=== PATIENT | female | born 1990 | race African-American/Black ===

== ENCOUNTER 2024-05-27 19:58 | Emergency (ER) | payer BC, MEDICAID, SELFPAY ==
[2024-05-27 20:14] VITALS: BP 130/78; PULSE 88; RESP 14; TEMP 36.6; O2SAT 99
[2024-05-27 21:32] LABS: BEDSIDEPREGUCG Positive (Negative)
[2024-05-27 21:38] LABS: Basophils Absolute Auto 0.1 K/mm3 (0.0-0.1); Basophils Percent Auto 0.5 % (0.2-1.2); Eosinophils Absolute Auto 0.2 K/mm3 (0-0.3); Eosinophils Percent Auto 1.4 % (0-4.4); Hematocrit 35.8 % (37.0-47.0); Hemoglobin 11.2 g/dL (12.0-15.0); Immature Granulocyte Absolute 0.06 K/mm3 (0.00-0.031); Immature Granulocyte Percent A 0.4 % (0-0.5); Lymphocytes Absolute Auto 4.17 K/mm3 (0.9-3.2); Lymphocytes Percent Auto 30.2 % (18.3-44.2); Mean Corpuscular HGB Conc 31.3 g/dl (32-36); Mean Corpuscular Hemoglobin 28.6 pg (26-34); Mean Corpuscular Volume 91.3 fl (80-100); Mean Platelet Volume 9.8 fl (7.4-10.4); Monocytes Absolute Auto 1.2 K/mm3 (0.1-0.6); Neutrophils Absolute Auto 8.1 K/mm3 (1.3-6.7); Neutrophils Percent Auto 58.5 % (45.5-73.1); Platelet Count Result 395 k/mm3 (150-375); Red Blood Count 3.92 M/mm3 (4.2-5.4); Red Cell Distribution Width 14.4 % (11.5-14.5); White Blood Count 13.8 K/mm3 (4.5-10.0)
--- NOTE | 2024-05-27 21:44 | ED_ITS ---
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 Came straight to the ER. Symptoms are resolving currently <Kate Laboy MD - Last Filed: 05/27/24 21:51> Related Data Allergies/Adverse reactions: Allergies Allergy/AdvReac Type Severity Reaction Status Date / Time No Known Allergies Allergy Verified 05/27/24 20:00 <Kate Laboy MD - Last Filed: 05/27/24 21:51> Review of Systems 2 Review of Systems: All systems reviewed & are unremarkable except as noted in HPI and below <Kate Laboy MD - Last Filed: 05/27/24 21:51> Exam 2 Narrative: EXAMINATION OF ORGAN SYSTEMS/BODY AREAS: Constitutional: Vital signs per nursing GENERAL:[No acute distress, non-toxic appearing.] HEAD: Normal with no signs of head trauma. EYES: EOMI, conjunctiva normal ENT: Hearing grossly intact LUNGS: Nonlabored breathing. HEART: [Regular rate and rhythm] ABD: [Soft], gravid, [nontender to palpation] EXT: Normal range of motion SKIN: [No rashes or lesions.] NEURO: [Alert and oriented x 3. No gross focal sensory or strength deficits.] PSYCH: Normal affect <Kate Laboy MD - Last Filed: 05/27/24 21:51> Course Vital Signs Vital signs: Vital Signs Temperature 97.9 F 05/27/24 20:14 Pulse Rate 88 05/27/24 20:14 Respiratory Rate 14 05/27/24 20:14 Blood Pressure 130/78 05/27/24 20:14 Pulse Oximetry 99 05/27/24 20:14 Temperature 97.9 F 05/27/24 20:14 Pulse Rate 88 05/27/24 20:14 Respiratory Rate 14 05/27/24 20:14 Blood Pressure 130/78 05/27/24 20:14 Pulse Oximetry 99 05/27/24 20:14 <Kate Laboy MD - Last Filed: 05/27/24 21:51> Vital Signs Temperature 97.9 F 05/27/24 20:14 Pulse Rate 88 05/27/24 20:14 Respiratory Rate 14 05/27/24 20:14 Blood Pressure 130/78 05/27/24 20:14 Pulse Oximetry 99 05/27/24 20:14 Temperature 97.9 F 05/27/24 20:14 Pulse Rate 88 05/27/24 20:14 Respiratory Rate 14 05/27/24 20:14 Blood Pressure 130/78 05/27/24 20:14 Pulse Oximetry 99 05/27/24 20:14 <Tere Pérez MD - Last Filed: 05/27/24 22:48> MDM - OB/Uterine Contractions MDM Narrative Medical decision making narrative: Patient presenting at 12 weeks with spotting and cramping. She is well-appearing here, abdomen soft nontender and gravid. I did perform bedside ultrasound, I did see twin gestation, both intrauterine, with heart rate in the 150s. I will obtain labs including beta quant, blood type, CBC, I have discussed with patient this may be a threatened miscarriage, she will be signed out to oncoming ER physician pending labs but I anticipate going home with follow-up to OBGYN. < Kate Laboy MD - Last Filed: 05/27/24 21:51> Patient presenting at 12 weeks with spotting and cramping. She is well-appearing here, abdomen soft nontender and gravid. I did perform bedside ultrasound, I did see twin gestation, both intrauterine, with heart rate in the 150s. I will obtain labs including beta quant, blood type, CBC, I have discussed with patient this may be a threatened miscarriage, she will be signed out to oncoming ER physician pending labs but I anticipate going home with follow-up to OBGYN. Beto: Patient was signed out to me pending remainder of the workup. The patient was evaluated by myself in the emergency department. History is obtained from patient who is an independent historian and physical exam was performed. External medical records were reviewed at this time. IV was established and pertinent tests were ordered. Blood work was obtained revealing no acute process[place] [address], potassium level of 3.1, and blood type A positive. At this time patient was administered 40 meq of oral potassium. Differential diagnosis considerations include threatened miscarriage, electrolyte derangements. Comorbidities impacting this visit include none. I have evaluated and discussed social determinants of health with the patient that could potentially impact subsequent diagnosis and treatment plans. On repeat assessment of the patient, reevaluation revealed that the patient is doing well and is in no acute distress. Patient symptoms have improved since she arrived to our emergency department. Repeat vital signs were all reviewed and noted to be stable. Differential diagnosis and treatment plan were discussed with the patient at bedside. Patient agrees with discussion and after shared medical decision making agrees with discharge. All questions were answered to the patient's satisfaction. Patient will follow up with her OBGYN in 2 days. Patient was provided with strict return precautions and instructed to return to the emergency department if any new or worsening symptoms develop. The patient was discharged in stable condition. <Tere Pérez MD - Last Filed: 05/27/24 22:48> Lab Data Result diagrams: 05/27/24 20:18 05/27/24 20:18 <Kate Laboy MD - Last Filed: 05/27/24 21:51> Labs: Lab Results 05/27/24 05/27/24 Range/Units 20:18 21:30 WBC 13.8 H (4.5-10.0) K/mm3 RBC 3.92 L (4.2-5.4) M/mm3 Hgb 11.2 L (12.0-15.0) g/dL Hct 35.8 L (37.0-47.0) % MCV 91.3 (80-100) fl MCH 28.6 (26-34) pg MCHC 31.3 L (32-36) g/dl RDW 14.4 (11.5-14.5) % Plt Count 395 H (150-375) k/mm3 MPV 9.8 (7.4-10.4) fl Immature Gran % (Auto) 0.4 (0-0.5) % Neut % (Auto) 58.5 (45.5-73.1) % Lymph % (Auto) 30.2 (18.3-44.2) % Glasscock % (Auto) 9.0 H (2.6-8.5) % Eos % (Auto) 1.4 (0-4.4) % Baso % (Auto) 0.5 (0.2-1.2) % Lymph # (Auto) 4.17 H (0.9-3.2) K/mm3 Glasscock # (Auto) 1.2 H (0.1-0.6) K/mm3 Eos # (Auto) 0.2 (0-0.3) K/mm3 Baso # (Auto) 0.1 (0.0-0.1) K/mm3 Abs Immat Gran (auto) 0.06 H (0.00-0.031) K/mm3 Absolute Neuts (auto) 8.1 H (1.3-6.7) K/mm3 Absolute Nucleated RBC 0.000 (0.0-0.012) K/mm3 Nucleated RBC % 0.0 (0.0-0.2) % Sodium 134 L (137-145) mmol/L Potassium 3.1 L (3.4-5.0) mmol/L Chloride 104 (98-107) mmol/L Carbon Dioxide 23 (22-30) mmol/L Anion Gap 7 (4-12) mmol/L BUN 4 L (7-17) mg/dL Creatinine 0.51 L (0.7-1.0) mg/dL Estim Creat Clear Calc 170 ml/min Estimated GFR > 60 (59 - ) Glucose 86 (65-110) mg/dL Calcium 8.5 (8.4-10.2) mg/dL Total Bilirubin 1.1 (0.2-1.3) mg/dL AST 24 (14-36) U/L ALT 15 (6-35) U/L Alkaline Phosphatase 78 (38-126) U/L Total Protein 7.0 (6.3-8.2) g/dL Albumin 3.9 (3.5-5.1) g/dL Beta HCG, Quant > 92232.00 mIU/ML POC Urine HCG, Qual Positive (Negative) Blood Type A Positive Antibody Screen Negative Screen TNP Baby's Blood Type Not Reportable Baby's NELSY Not Reportable Doses of RhIg Required 0 <Kate Laboy MD - Last Filed: 05/27/24 21:51> Lab Results 05/27/24 05/27/24 Range/Units 20:18 21:30 WBC 13.8 H (4.5-10.0) K/mm3 RBC 3.92 L (4.2-5.4) M/mm3 Hgb 11.2 L (12.0-15.0) g/dL Hct 35.8 L (37.0-47.0) % MCV 91.3 (80-100) fl MCH 28.6 (26-34) pg MCHC 31.3 L (32-36) g/dl RDW 14.4 (11.5-14.5) % Plt Count 395 H (150-375) k/mm3 MPV 9.8 (7.4-10.4) fl Immature Gran % (Auto) 0.4 (0-0.5) % Neut % (Auto) 58.5 (45.5-73.1) % Lymph % (Auto) 30.2 (18.3-44.2) % Glasscock % (Auto) 9.0 H (2.6-8.5) % Eos % (Auto) 1.4 (0-4.4) % Baso % (Auto) 0.5 (0.2-1.2) % Lymph # (Auto) 4.17 H (0.9-3.2) K/mm3 Glasscock # (Auto) 1.2 H (0.1-0.6) K/mm3 Eos # (Auto) 0.2 (0-0.3) K/mm3 Baso # (Auto) 0.1 (0.0-0.1) K/mm3 Abs Immat Gran (auto) 0.06 H (0.00-0.031) K/mm3 Absolute Neuts (auto) 8.1 H (1.3-6.7) K/mm3 Absolute Nucleated RBC 0.000 (0.0-0.012) K/mm3 Nucleated RBC % 0.0 (0.0-0.2) % Sodium 134 L (137-145) mmol/L Potassium 3.1 L (3.4-5.0) mmol/L Chloride 104 (98-107) mmol/L Carbon Dioxide 23 (22-30) mmol/L Anion Gap 7 (4-12) mmol/L BUN 4 L (7-17) mg/dL Creatinine 0.51 L (0.7-1.0) mg/dL Estim Creat Clear Calc 170 ml/min Estimated GFR > 60 (59 - ) Glucose 86 (65-110) mg/dL Calcium 8.5 (8.4-10.2) mg/dL Total Bilirubin 1.1 (0.2-1.3) mg/dL AST 24 (14-36) U/L ALT 15 (6-35) U/L Alkaline Phosphatase 78 (38-126) U/L Total Protein 7.0 (6.3-8.2) g/dL Albumin 3.9 (3.5-5.1) g/dL Beta HCG, Quant > 47724.00 mIU/ML POC Urine HCG, Qual Positive (Negative) Blood Type A Positive Antibody Screen Negative Screen TNP Baby's Blood Type Not Reportable Baby's NELSY Not Reportable Doses of RhIg Required 0 <Tere Pérez MD - Last Filed: 05/27/24 22:48> Discharge Plan Discharge Clinical Impression: Threatened miscarriage, Hypokalemia <Kate Laboy MD - Last Filed: 05/27/24 21:51> Patient Disposition: Home <Kate Laboy MD - Last Filed: 05/27/24 21:51> Condition: Stable <Kate Laboy MD - Last Filed: 05/27/24 21:51> Instructions: Threatened Miscarriage (ED) <Kate Laboy MD - Last Filed: 05/27/24 21:51> Additional Instructions: Please follow-up with your OBGYN in 2 days. If you start experiencing heavy bleeding, such as soaking 1 pad an hour for 2 hours straight, or severe pain or anything else concerning, please come back to the hospital. <Kate Laboy MD - Last Filed: 05/27/24 21:51> Patient Language: Lebanese <Kate Laboy MD - Last Filed: 05/27/24 21:51> Follow-up/Referrals: PHYSICIAN NOT ON STAFF,NONSTAFF [Non-Staff] - 2 Days <Kate Laboy MD - Last Filed: 05/27/24 21:51> Time of Disposition: 22:45 <Kate Laboy MD - Last Filed: 05/27/24 21:51> 22:45 <Tere Pérez MD - Last Filed: 05/27/24 22:48>
[2024-05-27 21:59] LABS: Alanine Aminotransferase 15 U/L (6-35); Albumin Level 3.9 g/dL (3.5-5.1); Alkaline Phosphatase 78 U/L (38-126); Anion Gap 7 mmol/L (4-12); Aspartate Amino Transferase 24 U/L (14-36); Bilirubin,Total 1.1 mg/dL (0.2-1.3); Blood Urea Nitrogen 4 mg/dL (7-17); Calcium 8.5 mg/dL (8.4-10.2); Carbon Dioxide 23 mmol/L (22-30); Chloride 104 mmol/L (98-107); Estimated CRCL calculation 170 ml/min; Estimated Glomerular Filt Rate > 60; Glucose 86 mg/dL (65-110); Potassium 3.1 mmol/L (3.4-5.0); Sodium 134 mmol/L (137-145)
--- OUTSIDE RECORDS SUMMARY | 2024-05-27 22:16 | XMS_ITS | Clinical Summary ---
Author Organization [facility] Address [address] [place] [address] Care Team Providers Care Ski Maker Wood Name Role Phone Unavailable Primary Care Provider Unavailabl e Allergies Active Allergy Reactions Criticality Noted Date Comments Penicillins Unknown 08/07/2021 Medications metroNIDAZOLE (METROCREAM) 0.75 % Cream Apply to affected area 2 times daily. 2 Active HYDROcodone-aceta minophen (HYCET) 7.5-325 mg/15 mL SolutionIndicatio ns:Obesity (BMI 35.0-39.9 without comorbidity) Take 15 mL by mouth every 6 hours as needed for Pain. Max Daily Amount: 60 mL 300 mL 08/30/2021 12:39 PM CDT 2 Active omeprazole (PriLOSEC) 40 mg Capsule, Delayed Release(E.C.) Take 1 Capsule (40 mg) by mouth daily. 30 Capsule 2 08/30/2021 12:39 PM CDT 2 Active ondansetron (ZOFRAN ODT) 4 mg Tablet, Rapid Dissolve Dissolve 1 Tablet (4 mg)on top of tongue, then swallow with saliva every 8 hours as needed for Nausea/Vomiti ng 20 Tablet 08/30/2021 12:39 PM CDT 2 Active ketorolac tromethamine (TORADOL) 10 mg tablet Take 1 Tablet (10 mg) by mouth every 6 hours as needed for Pain. 15 Tablet 1 2 Active ergocalciferol (VITAMIN D2) 50,000 unit capsuleIndication s:Vitamin D deficiency TAKE 1 CAPSULE (50,000 UNITS) BY MOUTH EVERY 7 DAYS 12 Capsule 1 2 Active ferrous sulfate 325 mg (65 mg iron) Tablet, Delayed Release (E.C.)Indications :Iron deficiency anemia, unspecified iron deficiency anemia type TAKE 1 TABLET BY MOUTH EVERY DAY 90 Tablet 1 2 Active Active Problems Problem Noted Date Diagnosed Date Iron deficiency anemia randal thomas to inadequate dietary iron intake 09/18/2021 H/O bariatric surgery 09/18/2021 Obesity (BMI 35.0-39.9 without comorbidity) 07/13 Social History Tobacco Use Types Packs/Day Years Used Date Smoking Tobacco: Never Smokeless Tobacco: Never Tobacco Cessation:Counseling Given: Not Answered Alcohol Use Standard Drinks/Week Comments Never 0 (1 standard drink = 0.6 oz pur e alcohol) Comments No Sex and Gender Information Value Date Recorded Sex Assigned at Not on file Legal Sex Female 1:38 PM CDT Gender Identity Not on file Sexual Orientation Not on file Last Filed Vital Signs Vital Sign Reading Time Taken Comments Blood Pressure 137/79 12/08/2021 10:52 AM CDT Pulse 72 12/08/2021 10:52 AM CDT Temperature 37 C (98.6 F) 12/08/2021 8:46 AM CDT Respiratory Rate 16 12/08/2021 8:46 AM CDT Oxygen Saturation 98% 11/20/2021 3:06 PM CDT Inhaled Oxygen Concentration - - Weight 124.7 kg (275 lb) 11/20/2021 3:06 PM CDT Height 172.7 cm (5' 8 ) 11/20/2021 3:06 PM CDT Body Mass Index 41.81 11/20/2021 3:06 PM CDT Plan of Treatment Health Maintenance Due Date Last Done Comments DTAP/TDAP/TD VACCINES (1 - Tdap) 2009 HEPATITIS B VACCINES (1 of 3 - 19+ 3-dose series) 2009 HPV/Cotest (21-29) 12/05/2011 CERVICAL CANCER SCREENING 2020 HPV/Cotest (30-65) 2020 PAP SMEAR 2020 INFLUENZA VACCINE (#1) 2023 HPV VACCINES Aged Out No longer eligi ble based on patient's age to complete this topic Medical Devices Implanted Type Area Keyseating Machine Set Up Operator Device Identifier Shelf Expiration Date Model / Serial / Lot Algrf Amniofix 2x12cm Amnio Membrane Implanted:Qty: 1 on 08/30/2021 by [facility] N/A: Abdomen [employer] 04/11/2026 [id number] / [id number] / Description:1X ADD CHECKED BY RN 08/31/21 PER TISSUE TRACKING FORM Requisition: [id number] Insurance [facility] BLUE ACCESS CHOICE RX [facility] [employer]
--- OUTSIDE RECORDS SUMMARY | 2024-05-27 22:16 | XMS_ITS | Encounter Summary ---
Author Organization [facility] Address [address] [place] [address] Care Team Providers Care Assistant Women'S Basketball Coach Name Role Phone Unavailable Primary Care Provider Unavailabl e Reason for Visit * Reason Onset Date Comments Medication Refill 09/25/2021 Encounter Details Date Type Department Care Team (Late st Contact Info) Description 09/25/2021 Refill [facility] [address] [address] Rubens Pabon MD [address] [place] [id number] Vitamin D deficiency Social History Tobacco Use Types Packs/Day Years Used Date Smoking Tobacco: Never Smokeless Tobacco: Never Alcohol Use Standard Drinks/Week Comments Never 0 (1 standard drink = 0.6 oz pur e alcohol) Comments No Sex and Gender Information Value Date Recorded Sex Assigned at Not on file Legal Sex Female 1:38 PM CDT Gender Identity Not on file Sexual Orientation Not on file COVID-19 Exposure Response Date Recorded In the last 10 days, have yo u been in contact with someone who was confirmed or suspected to have Coronavirus/COVID-19? No / Unsure 09/27/2021 7:26 AM CDT documented as of this encounter Plan of Treatment Not on file documented as of this encounter Visit Diagnoses Diagnosis Vitamin D deficiency Unspecified vitamin D deficiency documented in this encounter
--- OUTSIDE RECORDS SUMMARY | 2024-05-27 22:16 | XMS_ITS | Clinical Summary ---
Author Organization [facility] Address [address] [place] [address] Care Team Providers Care Sterile Instrument Technician Name Role Phone Azalia Cardona MD Primary Care Provid er Allergies No known active allergies Medications dicyclomine (BENTYL) 20 mg tablet Take 1 tablet by mouth as needed 2 Active M- Plus 27 mg iron- 1 mg tablet Take 1 tablet by mouth daily 2 Active docusate sodium (COLACE) 100 mg capsuleIndicati ons:constipatio n Take 100 mg by mouth daily Active ferrous sulfate 325 mg (65 mg of elemental iron) tabletIndicatio ns:Iron Deficiency Anemia Take 65 mg of elemental iron by mouth daily with breakfast Active cyanocobalamin (Vitamin B-12) 1,000 mcg tabletIndicatio ns:Prevention of Vitamin B12 Deficiency Take 1,000 mcg by mouth daily Active phenazopyridine (PYRIDIUM) 200 mg tabletIndicatio ns:Urinary Tract Irritation Take 1 tablet (200 mg total) by mouth 3 (three) times a day 6 tablet 4 Active hydrocortisone- pramoxine (ANALPRAM-HC) 2.5-1 % rectal creamIndication s:Hemorrhoids Insert into the rectum 2 (two) times a day 30 g 4 Active Active Problems Problem Noted Date Diagnosed Date Asthma 06/27/2013 Overview (05/18/2016): ASTHMA NOS Atopic rhinitis 06/27/2013 Overview (05/19/2016): ALLERGIC RHINITIS NOS Surgical History Surgery Date Site/Laterality Comments FOOT SURGERY 02/11/2002 - 02/10/2003 Right LAPAROSCOPIC GASTRIC BYPASS 04/11/2017 - 05/11/2017 ANGIOPLASTY 02/11/2018 - 02/10/2019 REDUCTION MAMMOPLASTY 04/29/2019 Family History Medical History Relation Name Comments Allergies Father Allergies; Allergies Mother Allergies; Relation Name Status Comments Brother 1 Alive Brother 2 Alive Father Alive Mother Alive Sister 1 Alive Sister 2 Alive Social History Tobacco Use Types Packs/Day Years Used Date Smoking Tobacco: Never Smokeless Tobacco: Never Tobacco Cessation:Counseling Given: No Alcohol Use Standard Drinks/Week Comments Yes 0 (1 standard drink = 0.6 oz pur e alcohol) AUDIT-C Answer Date Recorded Frequency of Alcohol Consumption Not on file 05/02/2021 Average Number of Drinks Not on file 022 Q3: How often do you have si x or more drinks on one occasion? Never 05/02/2021 Personal Safety Answer Date Recorded Have you ever been in or are you currently in a harmful physical or emotional relationship or is someone making you feel afraid or unsafe? Denies 02/12/2023 Comments No Sex and Gender Information Value Date Recorded Sex Assigned at Not on file Legal Sex Female 2:50 PM SOLAR ENGINEER Gender Identity Not on file Sexual Orientation Not on file Obstetrics History Last Filed Vital Signs Vital Sign Reading Time Taken Comments Blood Pressure 144/80 02/12/2023 6:35 AM SOLAR ENGINEER Pulse 78 02/12/2023 6:35 AM SOLAR ENGINEER Temperature 36.2 C (97.2 F) 02/12/2023 2:27 AM SOLAR ENGINEER Respiratory Rate 18 02/12/2023 6:35 AM SOLAR ENGINEER Oxygen Saturation 96% 02/12/2023 6:35 AM SOLAR ENGINEER Inhaled Oxygen Concentration - - Weight 104.3 kg (230 lb) 02/12/2023 2:27 AM SOLAR ENGINEER Height 175.3 cm (5' 9 ) 02/12/2023 2:27 AM SOLAR ENGINEER Body Mass Index 33.97 02/12/2023 2:27 AM SOLAR ENGINEER Plan of Treatment Health Maintenance Due Date Last Done Comments Cervical Cancer Screening 1990 Depression Screening 1990 Hepatitis C Screening 1990 DTaP/Tdap/Td Vaccine (1 - Tdap) 2001 Varicella Vaccines (1 of 2 - 13+ 2-dose series) 12/05/2003 Hepatitis B Screening 2008 Regular Well Visit/Exam 18-64 2008 Pneumococcal vaccine <65 (1 of 2 - PCV) 2009 Influenza Vaccine (#1) 2023 HPV Vaccines Aged Out No longer eligi ble based on patient's age to complete this topic Insurance [employer] BLUE ACC CHOICE OOS Care Teams Sterile Instrument Technician Relationship Specialty Start Date End Date Azalia Cardona MD [address] [facility] [address] [place] [address] PCP - General Obstetrics and Gynecology 10/21/22
--- OUTSIDE RECORDS SUMMARY | 2024-05-27 22:16 | XMS_ITS | Referral Summary ---
Author Organization [facility] Address [address] [place] [address] Care Team Providers Care Handbag Operator Name Role Phone Azalia Cardona MD Primary [...] rhinitis 06/27/2013 Overview (05/19/2016): ALLERGIC RHINITIS NOS Social History Tobacco Use Types Packs/Day Years [...] on file Legal Sex Female 2:50 PM FINANCIAL ENGINEER Gender Identity Not on file Sexual Orientation Not on file Last Filed Vital Signs Vital Sign Reading Time Taken Comments Blood Pressure 144/80 02/12/2023 6:35 AM FINANCIAL ENGINEER Pulse 78 02/12/2023 6:35 AM FINANCIAL ENGINEER Temperature 36.2 C (97.2 F) 02/12/2023 2:27 AM FINANCIAL ENGINEER Respiratory Rate 18 02/12/2023 6:35 AM FINANCIAL ENGINEER Oxygen Saturation 96% 02/12/2023 6:35 AM FINANCIAL ENGINEER Inhaled Oxygen Concentration - - Weight 104.3 kg (230 lb) 02/12/2023 2:27 AM FINANCIAL ENGINEER Height 175.3 cm (5' 9 ) 02/12/2023 2:27 AM FINANCIAL ENGINEER Body Mass Index 33.97 02/12/2023 2:27 AM FINANCIAL ENGINEER Plan of Treatment Not on file Insurance [employer] BLUE ACC CHOICE OOS Care Teams Handbag Operator Relationship Specialty Start Date End Date Azalia Cardona MD [facility] [address] [place] [address] PCP - General Obstetrics and Gynecology 10/21/22
--- OUTSIDE RECORDS SUMMARY | 2024-05-27 22:16 | XMS_ITS | Clinical Summary ---
Author Organization [facility] Address [address] [place] [address] Care Team Providers Care Apricot Washer Name Role Phone Christine Dexter Primary Care Provider [phone] Source Comments [facility],non-owned Affiliates and Associated Physician Practices is amultiple site organization consisting of ambulatory clinics and hospital sitesin [place], [place], [place] and [place]. This disclosure is being madepursuant to the Care Everywhere program and may not contain all information available regarding this patient. Last updated 17.[facility] Allergies No known active allergies Medications * Be aware that medications may not be up to date on this document. Alwaysverify current medications with the patient. omeprazole (PriLOSEC) 20 MG capsule Take 1 (one) capsule by mouth daily before breakfast 30 capsule 2 Active Additional Information Patient not taking.Reported on 01/30/2023 vitamin D, ergocalciferol, (Drisdol) 1.25 MG (64668 UT) capsule Take 1 (one) capsule by mouth every 7 days 12 capsule 1 2 Active Additional Information Patient not taking.Reported on 01/30/2023 Active Problems Problem Noted Date Diagnosed Date H/O bariatric surgery 09/18/2021 06/06/2022 Iron deficiency anemia secon martha to inadequate dietary iron intake 09/18/2021 06/06/2022 NAFLD (nonalcoholic fatty liver disease) 022 Overview (03/09/2021): 03/09/21 Fibroscan CAP 162, LSM 5.4 kPa Screening for condition 04/10/2018 Overview (09/09/2020): Adult Abstraction Problem List Screening Dexa Scan (Bone Density): Result: Pap Smear: 01/14/18 ASCUS w/ + HPV, no abnormal pap hx per pt Mammogram: Result: CF Test: Result: ASCUS with positive high risk HPV cervical 01/17 BMI 38.0-38.9,adult 01/14/2018 History of gastric bypass 01/14/2018 Asthma 06/27/2013 06/06/2022 Overview (06/06/2022): ASTHMA NOS Family History Medical History Relation Name Comments Cancer - Breast Neg Hx Cancer - Colon Neg Hx Colon polyps Neg Hx Hypertension Neg Hx Relation Name Status Comments Father Alive Maternal Grandfather Alive Maternal Grandmother Alive Mother Alive Paternal Grandfather Alive Paternal Grandmother Alive Social History Tobacco Use Types Packs/Day Years Used Date Smoking Tobacco: Never Smokeless Tobacco: Never Tobacco Cessation:Counseling Given: Not Answered Alcohol Use Standard Drinks/Week Comments No 0 (1 standard drink = 0.6 oz pur e alcohol) PHQ-2 Answer Date Recorded PHQ2 TOTAL SCORE 0 04/04/2022 Hunger Vital Sign Answer Date Recorded Within the past 12 months, y ou worried that your food would run out before you got the money to buy more. Never true 12/20/19 22 Within the past 12 months, t he food you bought just didn't last and you didn't have money to get more. 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 Not on file Not on file Last Filed Vital Signs Vital Sign Reading Time Taken Comments Blood Pressure 128/84 01/30/2023 2:05 PM OFFICE COMMUNICATION PROFESSOR Pulse 93 01/30/2023 2:05 PM OFFICE COMMUNICATION PROFESSOR Temperature 36.7 C (98 F) 05/29/2022 8:27 PM CDT Respiratory Rate 16 05/30/2022 1:52 AM CDT Oxygen Saturation 99% 01/30/2023 2:05 PM OFFICE COMMUNICATION PROFESSOR Inhaled Oxygen Concentration - - Weight 104.2 kg (229 lb 12.8 oz) 01/30/2023 2:05 PM OFFICE COMMUNICATION PROFESSOR Height 177.8 cm (5' 10 ) 05/29/2022 8:27 PM CDT Body Mass Index 32.97 05/29/2022 8:27 PM CDT Plan of Treatment Health Maintenance Due Date Last Done Comments HIV SCREENING 2005 HEPATITIS C SCREENING 11/29/2008 DTAP/TDAP/TD VACCINES (1 - Tdap) 2009 HEPATITIS B VACCINE (1 of 3 - 19+ 3-dose series) 2009 PNEUMOCOCCAL VACCINE (1 of 2 - PCV) 2009 PAP SMEAR 01/14/2019 01/14/2018, 09/07/2016 COVID-19 VACCINE (1 - 2023-2 5 season) 2023 DEPRESSION SCREENING 02/12/2024 04/04/2022 INFLUENZA VACCINE (Season Ended) 2024 ZOSTER VACCINE (1 of 2) 2040 HIB VACCINE Aged Out No longer eligi ble based on patient's age to complete this topic HPV VACCINE Aged Out No longer eligi ble based on patient's age to complete this topic MENINGOCOCCAL (Group B) VACCINE SHARED DECISION-MAKING Aged Out No longer eligible based on patient's age to complete this topic MENINGOCOCCAL GROUPS A/C/Y/W VACCINE Aged Out No longer eligible b ased on patient's age to complete this topic Procedures Procedure Name Priority Date/Time Associated Diagnosis Comments PAP IG RFLX HPV ASCU Routine 01/14/2018 8:34 AM OFFICE COMMUNICATION PROFESSOR Well woman exam with routine gynecological exam from Last 3 Months or Most Recently Relevant to Health Maintenance Results * (ABNORMAL) PAP IG RFLX HPV ASCU (01/14/2018 8:34 AM OFFICE COMMUNICATION PROFESSOR) Diagnosis (A) [facility] INSURANCE BILL Comment: EPITHELIAL CELL ABNORMALITY. ATYPICAL SQUAMOUS CELLS OF UNDETERMINED SIGNIFICANCE. Specimen Adequacy [facility] INSURANCE BILL Comment: Satisfactory for evaluation. Endocervical and/or squamous metaplastic cells (endocervical component) are present. Clinician Provided ICD10 [facility] INSURANCE BILL Comment: Z01.419 Z98.84 Z68.38 Performed by [facility] INSURANCE BILL Comment:Felicia Pino, Cyto technologist (ASCP) Electronically Signed by [facility] INSURANCE BILL Comment:Breanna Benjamin MD, P athologist Comment . [facility] INSURANCE BILL Pathologist Provided ICD10 [facility] INSURANCE BILL Comment:R87.610 Note [facility] INSURANCE BILL Comment: The Pap smear is a screening test designed to aid in the detection of premalignant and malignant conditions of the uterine cervix. It is not a diagnostic procedure and should not be used as the sole means of detecting cervical cancer. Both false-positive and false-negative reports do occur. . IGLBP CPT Code Automation [facility] INSURANCE BILL Comment: This liquid based ThinPrep(R) pap test was screened with the use of an image guided system. Note [facility] INSURANCE BILL Comment: See below for HPV testing results. . Pathology/Cytolog y PART OF UTERINE CERVIX / Unknown 01/14/2018 8:34 AM OFFICE COMMUNICATION PROFESSOR 01/14/2018 Narrative [facility] INSURANCE BILL - 01/17/2018 3:16 PM OFFICE COMMUNICATION PROFESSOR No. of containers..01 ThinPrep Vial Resulting Agency Comment [address] [phone] Christine Dexter DO LAB - PATHOLOGY/CYTOLOGY ORDER DANK Final Result [facility] INSURANCE BILL [address] [place] [address] from Last 3 Months or Most Recently Relevant to Health Maintenance Insurance BRAD Advance Directives * Full Code (Latest Code Status on File) Date Activated Date Inactivated Comments 12/18/2021 1:48 PM 12/19/2021 8:37 PM Care Teams Apricot Washer Relationship Specialty Start Date End Date Christine Dexter DO [address] [place] [id number] PCP - General Family Medicine 09/20/21
[2024-05-27] MEDS: POTASSIUM CHLORIDE 20 MEQ PACKET (FOR LIQUID) 40 MEQ PO (22:53)
[2024-05-27 22:54] VITALS: BP 124/80; PULSE 82; RESP 15; O2SAT 99
== END 2024-05-27 22:55 | disposition home or self-care (01) ==
LOC: ANHED 22:14
PROVIDERS: Emergency Medicine; Emergency Provider Emergency Medicine
DX: O20.0 Threatened abortion (principal); O99.281 Endocrine, nutritional and metabolic diseases complicating pregnancy, first trimester; E87.6 Hypokalemia; O30.001 Twin pregnancy, unspecified number of placenta and unspecified number of amniotic sacs, first trimester; Z3A.12 12 weeks gestation of pregnancy
CPT/HCPCS: 36415; 80053; 81025; 84702; 85025; 85461; 86850; 86900; 86901; 99284; A9270